=== PATIENT | female | born 1985 | race Caucasian/White ===

== ENCOUNTER → 2022-08-31 | Outpatient (CLI) | payer OTHER ==
--- NOTE | 2022-08-31 17:33 | XR ---
EXAMINATION TYPE: XR knee complete RT DATE OF EXAM: 08/31/2022 4:50 PM INDICATION: Patient age:Female; 36 years old; Reason for study: S80.01XA, S81.001A; [facility]. COMPARISON: None. TECHNIQUE: The right knee(s) was examined in Frontal, lateral and oblique projections. FINDINGS: No evidence of any acute osseous pathology, joint space narrowing, soft tissue swelling, or joint effusion is noted. IMPRESSION: 1. No acute osseous pathology.
== END | disposition home or self-care (01) ==
LOC: RADXRMAIN 16:37
PROVIDERS: ATTEND Emergency Medicine
DX: S80.01XA Contusion of right knee, initial encounter (principal); S81.001A Unspecified open wound, right knee, initial encounter

== ENCOUNTER → 2023-09-04 | Outpatient (CLI) | payer OTHER ==
[2023-09-04 18:31] LABS: Basophils # (A) 0.05 X 10*3/uL (0.00-0.10); Basophils % (A) 0.4 %; Eosinophils # (A) 0.15 X 10*3/uL (0.04-0.35); Eosinophils % (A) 1.3 %; HCT 41.6 % (37.2-46.3); HGB 13.7 g/dL (12.0-15.0); Lymphocytes # (A) 3.36 X 10*3/uL (0.90-5.00); MCH 28.7 pg (27.0-32.0); MCHC 32.9 g/dL (32.0-37.0); Mean Platelet Volume 9.5 FL (9.5-12.2); Monocytes # (A) 0.42 X 10*3/uL (0.20-1.00); Monocytes % (A) 3.6 %; NRBC Per 100 WBC 0 X 10*3/uL (0.00-0.01); Neutrophils # (A) 7.56 X 10*3/uL (1.80-7.70); Neutrophils % (A) 65.4 %; Platelet Count 336 X 10*3/uL (140-440); RBC 4.78 X 10*6/uL (4.10-5.20); RDW 13.7 % (11.5-14.5); WBC 11.57 X 10*3/uL (4.50-10.00)
[2023-09-04 19:01] LABS: % Iron Saturation 12.26 (12.00-45.00); Ferritin 42.3 ng/mL (10.0-291.0)
== END | disposition home or self-care (01) ==
LOC: LABWHC1 15:37
PROVIDERS: ATTEND Family Medicine
DX: D64.9 Anemia, unspecified (principal); E55.9 Vitamin D deficiency, unspecified
CPT/HCPCS: 36415; 82306; 82728; 83540; 83550; 85025

== ENCOUNTER 2024-12-29 02:21 | Emergency (ER) | payer OTHER ==
--- NOTE | 2024-12-29 02:37 | ED ---
Skin/Abscess/FB HPI - General Chief complaint: Skin/Abscess/Foreign Body Stated complaint: Rash Time Seen by Provider: 12/29/24 02:27 Source: patient, RN notes reviewed Mode of arrival: ambulatory Limitations: no limitations - History of Present Illness Initial comments: This is a 39-year-old female who presents to the emergency department for a rash. Patient states that she woke up shortly before arrival with an itchy rash all over her body. Denies any new medications or foods. Denies any new soaps or detergents. She cannot think of what she may have come into contact with that would have caused this. Denies any chest pain or shortness of breath. MD complaint: rash - Related Data Home Medications Medication Instructions Recorded Confirmed Ergocalciferol (Vitamin D2) 50,000 unit PO Q7DAYS 10/02/15 10/02/15 [Drisdol] Pnv,Calcium 72/Iron/Folic Acid 1 each PO DAILY 10/02/15 10/02/15 [ Plus Tablet] Ranitidine HCl [Zantac] 150 mg PO HS 10/02/15 10/02/15 Ferrous Sulfate [Feosol] 325 mg PO DAILY 05/24/23 05/24/23 Sqf-[id number]-Tszhy Acid 1 cap PO DAILY 05/24/23 05/24/23 [-U Capsule (formulary)] Previous Rx's Medication Instructions Recorded Amoxicillin 500 mg PO Q8H #30 capsule 10/02/15 Famotidine 40 mg PO DAILY 5 Days #5 tablet 12/29/24 diphenhydrAMINE [Benadryl] 50 mg PO QID PRN #30 capsule 12/29/24 predniSONE 50 mg PO DAILY 5 Days #5 tab 12/29/24 Allergies Allergy/AdvReac Type Severity Reaction Status Date / Time acetaminophen [From Vicodin] Allergy Unknown Verified 12/29/24 02:24 fluoxetine HCl [From Prozac] Allergy Unknown Verified 12/29/24 02:24 hydrocodone bitartrate Allergy Unknown Verified 12/29/24 02:24 [From Vicodin] ketorolac [From Toradol] Allergy Anaphylaxis Verified 12/29/24 02:24 ketorolac tromethamine Allergy Unknown Verified 12/29/24 02:24 [From Toradol] sulfamethoxazole Allergy Unknown Verified 12/29/24 02:24 [From Bactrim] tramadol Allergy Rash/Hives Verified 12/29/24 02:24 tramadol HCl [From Ultram] Allergy Unknown Verified 12/29/24 02:24 trimethoprim [From Bactrim] Allergy Unknown Verified 12/29/24 02:24 Review of Systems ROS Statement: Those systems with pertinent positive or pertinent negative responses have been documented in the HPI. ROS Other: All systems not noted in ROS Statement are negative. Past Medical History Past Medical History: Asthma, GERD/Reflux Additional Past Medical History / Comment(s): Vitamin D deficiency History of Any Multi-Drug Resistant Organisms: None Reported Past Surgical History: Section Additional Past Surgical History / Comment(s): Lipo X2. Cyst removal. Cryo therapy Past Psychological History: Depression, No Psychological Hx Reported Smoking Status: Current every day smoker Past Alcohol Use History: None Reported Past Drug Use History: None Reported General Exam Limitations: no limitations General appearance: alert, in no apparent distress Head exam: Present: atraumatic, normocephalic, normal inspection Respiratory exam: Present: normal lung sounds bilaterally. Absent: respiratory distress, wheezes, rales, rhonchi, stridor Cardiovascular Exam: Present: regular rate, normal rhythm Neurological exam: Present: alert, oriented X3, CN II-XII intact Psychiatric exam: Present: normal affect, normal mood Skin exam: Present: other (Urticaria to the bilateral upper and lower extremities and trunk) Course Vital Signs 12/29/24 02:22 Temperature 98.0 F Pulse Rate 84 Respiratory 18 Rate Blood Pressure 129/87 O2 Sat by Pulse 100 Oximetry Medical Decision Making - Medical Decision Making This is a 39-year-old female who presents to the emergency department for a rash. Was pt. sent in by a medical professional or institution? @ -No Did you speak to anyone other than the patient for history? @ -No Did you review nursing and triage notes? @ -Yes, and I agree, it is accurate with regards to the patient's symptoms. Were old charts reviewed? @ -No Differential Diagnosis? @ -Rose[place], measles, Lyme disease, erythema multiforme, cellulitis, toxic shock syndrome, Neo [place] syndrome, Kawasaki disease, [place] spotted fever, contact dermatitis, allergic dermatitis, measles, mumps, rubella, varicella, meningococcal disease, drug reaction, coxsackievirus, This is not meant to be an all-inclusive list. EKG interpreted by me (3pts min.)? @ -Not obtained X-rays interpreted by me (1pt min.)? @ -Not obtained CT interpreted by me (1pt min.)? @ -Not obtained U/S interpreted by me (1pt. min.)? @ -Not obtained What testing was considered but not performed? (CT, X-rays, U/S, labs)? Why? @ -None What meds were considered but not given? Why? @ -None Did you discuss the management of the patient with other professionals? @ -No Did you reconcile home meds? @ -No Was smoking cessation discussed for >3mins.? @ -No Was critical care preformed (if so, how long)? @ -No Were there social determinants of health that impacted care today? How? (Homelessness, low income, unemployed, alcoholism, drug addiction, transportation, low edu. Level, literacy, decrease access to med. care, long term, rehab)? @ -No Was there de-escalation of care discussed even if they declined? (Discuss DNR or withdrawal of care, Hospice)? @ -No What co-morbidities impacted this encounter? (DM, HTN, Smoking, COPD, CAD, Cancer, CVA, Hep., AIDS, mental health diagnosis, sleep apnea, morbid obesity)? @ -None Was patient admitted / discharged? @ -Discharged. Patient appeared to have diffuse urticaria on exam. She was given IM Solu-Medrol, Benadryl, and famotidine. She had significant improvement in symptoms and the appearance of the rash afterwards. Prescription for prednisone, famotidine, and Benadryl provided with dosing instructions reviewed. Patient discharged home in stable condition. Case discussed with ED attending, Dr. Pat. Return precautions reviewed in depth, the patient is instructed to return to the emergency department with any new, worsening, or concerning symptoms. Patient verbalized understanding. Undiagnosed new problem with uncertain prognosis? @ -None Drug Therapy requiring intensive monitoring for toxicity (Heparin, Nitro, Insulin, Cardizem)? @ -None Were any procedures done? @ -None Diagnosis/symptom? @ -Urticaria, allergic reaction Acute, or Chronic, or Acute on Chronic? @ -Acute Uncomplicated (without systemic symptoms) or Complicated (systemic symptoms)? @ -Uncomplicated Side effects of treatment? @ -None Exacerbation, Progression, or Severe Exacerbation] @ -Not applicable Poses a threat to life or bodily function? @ -No Disposition Clinical Impression: Urticaria, Allergic reaction Disposition: HOME SELF-CARE Instructions (If sedation given, give patient instructions): Urticaria (ED), General Allergic Reaction (ED) Additional Instructions: Return to the emergency department with any new, worsening, or concerning symptoms. Take the prednisone and famotidine daily for the next 5 days. Take the Benadryl every 4-6 hours as needed to help with the itching. Follow up with your primary care provider in 1-2 days. Prescriptions: diphenhydrAMINE [Benadryl] 50 mg PO QID PRN #30 capsule PRN Reason: Itching Famotidine 40 mg PO DAILY 5 Days #5 tablet predniSONE 50 mg PO DAILY 5 Days #5 tab Is patient prescribed a controlled substance at d/c from ED?: No Referrals: Neo Cameron MD [Primary Care Provider] - 1-2 days Time of Disposition: 03:36
[2024-12-29] MEDS: FAMOTIDINE 20 MG TAB PO STA (02:45)
[2024-12-29] MEDS: diphenhydrAMINE 50 MG/ML 1 ML VIAL IM STA (02:46)
[2024-12-29] MEDS: methylPREDNISolone SOD SUCCI 125 MG/2 ML VIAL IM ONE (02:46)
[2024-12-29 03:44] VITALS: BP 105/69; PULSE 69; RESP 14; TEMP 98.4
== END 2024-12-29 03:42 | disposition home or self-care (01) ==
LOC: EC 02:21
DX: T78.40XA Allergy, unspecified, initial encounter (principal); L50.9 Urticaria, unspecified; F17.200 Nicotine dependence, unspecified, uncomplicated; Z88.2 Allergy status to sulfonamides; Z88.6 Allergy status to analgesic agent; Z88.8 Allergy status to other drugs, medicaments and biological substances; Z88.1 Allergy status to other antibiotic agents
CPT/HCPCS: 99283; 96372 ×2; J1200; J2919